=== PATIENT | male | born 1995 | race African-American/Black ===

== ENCOUNTER 2017-08-07 19:12 | Emergency (ER) | payer OTHER ==
[2017-08-07] MEDS: ACETAMINOPHEN 325 MG TABLET. PO ×2 (19:30)
[2017-08-07] MEDS: predniSONE 10 MG TABLET PO ×2 (19:31)
[2017-08-07] MEDS: PENICILLIN G BENZATHINE LA 1,200,000 UNIT/2 ML DISP.SYRIN. IM ×2 (19:32)
== END 2017-08-07 19:55 | disposition home or self-care (01) ==
LOC: ER 19:12
DX: J02.9 Acute pharyngitis, unspecified (principal); R50.9 Fever, unspecified
CPT/HCPCS: 96372; 99283-25; J0561; J7512